=== PATIENT | male | born 1940 | race Asian ===

== ENCOUNTER → 2019-07-04 | Outpatient (CLI) | payer MEDICARE ==
--- NOTE | 2019-07-04 14:03 | Diagnostic Imaging Report ---
EXAM: Renal Ultrasound INDICATION: ^RENAL INSUFFICIENCY COMPARISON: CT abdomen pelvis of 11/18/2012 TECHNIQUE: Transverse and longitudinal images of the kidneys and bladder were obtained. FINDINGS: Right Kidney: Length: 9.3 cm Appearance: Normal echogenicity. Collecting system: No hydronephrosis Stones: None Cyst/Mass: None Left Kidney: Length: 10.0 cm Appearance: Normal echogenicity. Collecting system: No hydronephrosis Stones: Medial echogenic focus with twinkle artifact measures 4 mm. Cyst/Mass: None Bladder: Mild bladder wall irregularity without focal mass. No bladder calculi. Prevoid volume estimate of 112cc. Bilateral ureteral jets seen. The prostate measures 2.4 x 3.4 x 4.2 cm with an estimated volume of 17.9 cc IMPRESSION: 4 mm echogenic focus with single artifact at the left kidney midpole may represent a nonobstructive calculus. No right renal calculi. No hydronephrosis. Mild bladder wall irregularity without focal mass. Signed by: Dawood Olguin MD on 07/04/2019 2:00 PM
== END ==
LOC: US 13:07
PROVIDERS: ATTEND Family Medicine
DX: N28.9 Disorder of kidney and ureter, unspecified (principal)
CPT/HCPCS: 76770